=== PATIENT | female | born 1955 | race Caucasian/White ===

== ENCOUNTER → 2019-09-11 09:45 | Outpatient (CLI) | payer MEDICARE, SELFPAY ==
--- NOTE | 2019-09-11 | CYST_PTH ---
PATIENT: KAREN JOHNSON LOC: [place] U#:[id number] AGE/SX: 69/F ROOM: RE09/11/[address]: Dr. Alejandro Zavala MD : [id number] BED: DIS: SPEC #: [id number] RECD: 09/11/19 15:06 STATUS: LOR LEROY #: [id number] MIMA: 09/11/19 00:[address]: Alejandro Zavala DEPT: SURGICAL PATHOLOGY RECD BY: Bruce Lawson ENTERED: 09/12/19 10:11 SP TYPE: Cyst OTHR DR: JOSEY Tissues: CYST Procedures: Surgery Specimen Level III HEADER OPERATION: Left wrist cyst excision; left de Quervain's release PRE-OP DIAGNOSIS: Left wrist volar ganglion cyst, de Quervain's tendonitis TISSUE SUBMITTED: Left wrist cyst MICROSCOPIC DIAGNOSIS Left wrist cyst, excision: Consistent with ganglion cyst. DELORES:tiff 09/13/19 MICROSCOPIC DESCRIPTION Slides are reviewed. GROSS DESCRIPTION Received in fixative is one container labeled with the patient's name and designated left wrist cyst. The specimen consists of a piece of marie soft tissue measuring 1.5 x 1 x 0.5 cm. The specimen is bisected and submitted entirely in one cassette. / SJ:tiff 09/12/19 TC:5 CPT: 70070
== END ==
PROVIDERS: Referring Provider Orthopaedic Surgery; Visit Provider Orthopaedic Surgery
DX: M67.432 Ganglion, left wrist (principal); M65.4 Radial styloid tenosynovitis [de Quervain]
CPT/HCPCS: 88304